=== PATIENT | female | born 1960 | race Two or more races ===

== ENCOUNTER → 2024-10-03 | Outpatient (CLI) | payer OTHER, MEDICAID, SELFPAY ==
[2024-10-03 08:05] LABS: Collection Type, Urine Clean Catch
[2024-10-03 08:28] LABS: Basophils # (Auto) 0.1 Thou/mm3 (0.0-0.2); Basophils % (Auto) 1 % (0-2.5); Eosinophils # (Auto) 0.1 Thou/mm3 (0.0-0.5); Eosinophils % (Auto) 1 % (0-10); Hematocrit 42.2 % (36.0-46.0); Hemoglobin 14.2 g/dL (12.0-16.0); Immature Granulocytes % (Auto) 0 % (0-0); Lymphocytes # (Auto) 2.6 Thou/mm3 (1.0-4.8); Lymphocytes % (Auto) 49 % (10-50); Mean Corpuscular HGB Conc 33.6 g/dl (31.0-37.0); Mean Corpuscular Hemoglobin 31.4 pg (25.0-35.0); Mean Corpuscular Volume 93 fL (80-100); Monocytes # (Auto) 0.4 Thou/mm3 (0.0-0.8); Monocytes % (Auto) 7 % (0-12); Neutrophils # (Auto) 2.1 Thou/mm3 (1.8-7.7); Neutrophils % (Auto) 41 % (37-80); Nucleated Red Blood Cell % 0 /100 WBC (0); Platelet Count 278 Thou/mm3 (140-440); RDW Standard Deviation 45.2 fL (36.4-46.3); Red Blood Count 4.52 Miln/mm3 (4.00-5.20); White Blood Count 5.2 Thou/mm3 (3.6-11.0)
[2024-10-03 08:49] LABS: Alanine Aminotransferase 18 U/L (10-49); Albumin, Serum 4.3 gm/dL (3.4-4.8); Albumin/Globulin Ratio 1.6 (1.2-2.2); Alkaline Phosphatase 100 U/L (46-116); Anion Gap 9 (7-16); Aspartate Amino Transferase 16 U/L (0-34); BUN/Creatinine Ratio 30 Ratio (12-20); Bilirubin,Total 0.9 mg/dL (0.3-1.2); Blood Urea Nitrogen 18 mg/dL (9-23); Calcium 9.1 mg/dL (8.3-10.6); Calcium (Corrected) 9.1 mg/dL (8.5-10.1); Carbon Dioxide 27.5 mMol/L (20.0-31.0); Cardiac Risk Estimate 4.3 RATIO (3.7-5.6); Chloride 103 mMol/L (98-107); Cholesterol 234 mg/dL (132-200); Creatinine (Component) 0.6 mg/dL (0.6-1.3); Globulin 2.7 gm/dL (2.3-3.5); Glucose 135 mg/dL (74-106); HDL Cholesterol 55 mg/dL (40-60); LDL Cholesterol,Calculated 151 mg/dL (0-130); Osmolality,Calculated 281 (275-295); Sodium 139 mMol/L (136-145); Thyroid Stimulating Hormone 3.75 uIU/mL (0.55-4.78); Triglycerides 141 mg/dL (30-150); Uric Acid 4.4 mg/dL (3.1-7.8); eGFR > 60 See Note
[2024-10-03 08:50] LABS: Vitamin B12 1727 pg/mL (211-911); Vitamin D 25 Hydroxy Total 40.2 ng/mL (7.3-40.2)
[2024-10-03 08:52] LABS: Creatinine MALB Rnd Ur 69 mg/dL (30-125); Microalbumin, Random Urine < 3 mg/L (0-300)
[2024-10-03 08:56] LABS: Bilirubin,Urine Negative (Negative); Blood,Urine Negative (Negative); Clarity,Urine Clear (Clear/Hazy); Color,Urine Lt-Yellow (Lt Yel-Yel); Glucose, Urine 4+ (Negative); Ketones,Urine Negative (Negative); Leukocyte Esterase,Urine Negative (Negative); Nitrite,Urine Negative (Negative); Protein,Urine Negative (Neg - Trace); RBC,Urine 4 /hpf (0-3); Specific Gravity,Urine 1.036 (1.001-1.035); Squamous Epithelial Cell,Urine < 1 /hpf (0-5); Urobilinogen,Urine Negative mg/dL (0.0-1.0); WBC,Urine 1 /hpf (0-5)
[2024-10-03 09:17] LABS: Glucose Estimated Average 140 mg/dL (80-131); Hemoglobin A1C 6.5 % Hgb (4.8-6.0)
== END | disposition home or self-care (01) ==
PROVIDERS: PCP Internal Medicine; Referring Provider Internal Medicine; Visit Provider Internal Medicine
DX: E11.9 Type 2 diabetes mellitus without complications (principal); I10 Essential (primary) hypertension; E78.5 Hyperlipidemia, unspecified
CPT/HCPCS: 36415; 80053; 80061; 81001; 82043; 82306; 82570; 82607; 83036; 84443; 84550; 85025

== ENCOUNTER 2024-11-22 06:35 | Day surgery (SDC) | payer OTHER, SELFPAY ==
[2024-11-18 10:42] VITALS: BMI 33.7
[2024-11-18 11:16] LABS: Basophils # (Auto) 0.1 Thou/mm3 (0.0-0.2); Basophils % (Auto) 1 % (0-2.5); Eosinophils # (Auto) 0.1 Thou/mm3 (0.0-0.5); Eosinophils % (Auto) 1 % (0-10); Hematocrit 41.4 % (36.0-46.0); Hemoglobin 14.3 g/dL (12.0-16.0); Immature Granulocytes % (Auto) 0 % (0-0); Immature Granulocytes Auto 0.01 Thou/mm3 (0.00-0.00); Lymphocytes # (Auto) 2.2 Thou/mm3 (1.0-4.8); Lymphocytes % (Auto) 35 % (10-50); Mean Corpuscular HGB Conc 34.5 g/dl (31.0-37.0); Mean Corpuscular Hemoglobin 31.2 pg (25.0-35.0); Mean Corpuscular Volume 90 fL (80-100); Monocytes # (Auto) 0.4 Thou/mm3 (0.0-0.8); Monocytes % (Auto) 6 % (0-12); Neutrophils # (Auto) 3.6 Thou/mm3 (1.8-7.7); Neutrophils % (Auto) 57 % (37-80); Nucleated Red Blood Cell % 0 /100 WBC (0); Platelet Count 255 Thou/mm3 (140-440); RDW Standard Deviation 42.8 fL (36.4-46.3); Red Blood Count 4.59 Miln/mm3 (4.00-5.20); White Blood Count 6.2 Thou/mm3 (3.6-11.0)
[2024-11-18 11:27] LABS: Partial Thromboplastin Time 26.1 Seconds (22.0-36.0); Prothrombin Time 10.8 Seconds (9.0-12.2)
[2024-11-18 11:38] LABS: Alanine Aminotransferase 23 U/L (10-49); Albumin, Serum 4.6 gm/dL (3.4-4.8); Albumin/Globulin Ratio 1.6 (1.2-2.2); Alkaline Phosphatase 122 U/L (46-116); Anion Gap 10 (7-16); Aspartate Amino Transferase 28 U/L (0-34); BUN/Creatinine Ratio 19 Ratio (12-20); Bilirubin,Total 0.8 mg/dL (0.3-1.2); Blood Urea Nitrogen 13 mg/dL (9-23); Calcium 9.1 mg/dL (8.3-10.6); Calcium (Corrected) 9.1 mg/dL (8.5-10.1); Chloride 103 mMol/L (98-107); Creatinine (Component) 0.7 mg/dL (0.6-1.3); Estimated Creatinine Clearance 87.8 mL/min (>60); Globulin 2.8 gm/dL (2.3-3.5); Glucose 200 mg/dL (74-106); Osmolality,Calculated 283 (275-295); Sodium 139 mMol/L (136-145); Total Protein 7.4 gm/dL (5.7-8.2); eGFR > 60 See Note
--- NOTE | 2024-11-18 14:24 | ESHP_ITS ---
RE: AYAKA DUMONT : 1960 DATE OF ADMISSION: 11/22/2024 HISTORY OF PRESENT ILLNESS: This is a 64-year-old 3, para 3, postmenopausal with endometrial thickening who presents for hysteroscopy with endometrial biopsy to rule out hyperplasia and carcinoma. ALLERGIES: PENICILLIN. MEDICATIONS: 1. Atorvastatin 10 mg one p.o. daily. 2. Paroxetine 10 mg one p.o. daily. 3. Januvia 25 mg one p.o. daily. PAST MEDICAL HISTORY: Type 2 diabetes mellitus, depression, hyperlipidemia. FAMILY HISTORY: Sister has breast cancer and hypertension. OBSTETRIC HISTORY: Two previous full-term normal vaginal deliveries and one delivery. PAST SURGICAL HISTORY: delivery and cholecystectomy. REVIEW OF SYSTEMS: She denies any chest pain, palpitations, cough, fever, shortness of breath, or lower extremity pain. PHYSICAL EXAMINATION: VITAL SIGNS: Blood pressure is 135/71 mmHg, heart rate 76, respirations 18, temperature 98.2, and weight 196 pounds. HEENT: Oropharynx and sclerae are clear. LUNGS: Clear to auscultation bilaterally. HEART: Regular rate and rhythm. ABDOMEN: Old Pfannenstiel scar noted. EXTREMITIES: Nontender. SKIN: No grosses or lesions. NEUROLOGIC: No focal deficit. ASSESSMENT: 1. Postmenopausal bleeding. 2. Endometrial thickening. PLAN: Hysteroscopy, fracture dilatation and curettage, and endometrial biopsies. Informed consent was obtained. The patient was made aware of the risks, complications, alternatives, benefits of the proposed procedure, and she agrees. DT: 14:00:47 TT: 14:22:00 Ref: [id number] - TID: [id number]
[2024-11-22] VITALS (8 sets, daily range): BP systolic 114–135; BP diastolic 64–77; PULSE 66–79; RESP 12–14; TEMP 36.3–36.5; O2SAT 93–98; BMI 33.6
--- NOTE | 2024-11-22 07:20 | CHAP ---
Visited with patient and gave encouragement and prayer.
[2024-11-22] MEDS: RINGERS LACTATED 1000 ML 1,000 ML 30 ML IV (07:26)
--- NOTE | 2024-11-22 09:23 | SUR.PHASEI ---
0923: Pt. wakes to name then drifts bakc to sleep, vitals stable, breathing unlabored, no complaint of pain or nausea, peripad in place CDI, no active bleed noted, report received from Makenzie VALDEZ and MD Monet.
--- NOTE | 2024-11-22 10:23 | SUR.PHASEII ---
1023: Pt. AAOx4, vitals stable, breathing unlabored, no complaint of pain or nausea, peripad in place CDI, no active bleed noted, pt. tolerated sips of water well, pt. ambulated to wheelchair with steady gait and no assist, no complications. Gave discharge instructions to the pt. and her ride using bending roll hand, both verbalized understanding and had no further questions. Pt. left with all personal belongings.
--- NOTE | 2024-11-22 10:44 | ESOP_ITS ---
RE: AYAKA DUMONT : 1960 DATE OF OPERATION: 11/22/2024 PREOPERATIVE DIAGNOSES: 1. Postmenopausal bleeding. 2. Endometrial thickening. POSTOPERATIVE DIAGNOSES: 1. Postmenopausal bleeding. 2. Endometrial thickening. 3. Endometrial polyps. PROCEDURE PERFORMED: A hysteroscopy, MyoSure removal of endometrial polyps, and fractional dilatation and curettage. SURGEON: Sunny Vieira DO [employer] DEVELOPER: None. ANESTHESIA: General. ANESTHESIOLOGIST: Dr. Monet. ESTIMATED BLOOD LOSS: 5 mL. COMPLICATIONS: None. COUNTS: Correct. PATHOLOGY: 1. Endometrial polyps. 2. Endocervical curettings. 3. Endometrial curettings. FINDINGS: Multiple endometrial polyps, no endocervical lesions. 130 mL of normal saline was absorbed hysteroscopically. DESCRIPTION OF PROCEDURE: After appropriate informed consent was obtained and the patient was made aware of the risks, complications, alternatives, benefits of the proposed procedure, she was taken to the operating room where she underwent induction of general anesthesia. She was placed in the dorsal lithotomy position. She was prepped and draped in the usual sterile fashion. A timeout was performed. A speculum was placed in the vagina. The patient underwent exam under anesthesia. She had a retroverted uterus sounded to 7 cm. The posterior cervix was grasped with the tenaculum. The cervix was dilated to accommodate the 5.5 mm Omni hysteroscope. The hysteroscope was then utilized to visualize the endocervix and uterine cavity. Using the MyoSure reach, a polypectomy was performed. Due to the large multiple lobed-appearing polyp, it was difficult to determine the actual base. There seemed to be polyps on the anterior as well as posterior aspect of the uterus. All the polyps were removed using the MyoSure reach. The endocervix was then curetted with the Kevorkian curette. Specimen was sent to pathology. The uterine cavity was curetted and minimal tissue was obtained. There was no bleeding at the end of the procedure. All instruments were removed from the vagina. She was referred from general anesthesia in the supine position and transferred to the recovery room in stable condition. She tolerated the procedure well. Counts were correct. I discussed with the patient's family the nature of her condition, the intraoperative findings, expectation for recovery. All questions were answered. DT: 09:34:21 TT: 10:43:00 Ref: [id number] - TID: [id number] MTDD
== END 2024-11-22 10:23 | disposition home or self-care (01) ==
PROVIDERS: PCP Internal Medicine; Referring Provider Specialist; Visit Provider Specialist
PROC: 0U5B8ZZ Destruction of Endometrium, Via Natural or Artificial Opening Endoscopic (ICD-10-PCS; CPT 58563; principal; 2024-11-22 08:30)
DX: N84.0 Polyp of corpus uteri (principal); F32.A Depression, unspecified; E78.5 Hyperlipidemia, unspecified; E11.9 Type 2 diabetes mellitus without complications; Z90.49 Acquired absence of other specified parts of digestive tract; Z82.49 Family history of ischemic heart disease and other diseases of the circulatory system; Z80.3 Family history of malignant neoplasm of breast
CPT/HCPCS: 58558; 36415; 80053; 85025; 85610; 85730; 86850; 86900; 86901; A4217; A4649; J1100; J2250; J2405; J2704; J3010; J7120

== ENCOUNTER → 2025-02-03 | Outpatient (CLI) | payer MEDICARE, SELFPAY ==
[2025-02-03 10:07] LABS: Collection Type, Urine Clean Catch; Squamous Epithelial Cell,Urine 0 /hpf (0-5)
[2025-02-03 10:38] LABS: Bilirubin,Urine Negative (Negative); Blood,Urine Negative (Negative); Clarity,Urine Clear (Clear/Hazy); Color,Urine Colorless (Lt Yel-Yel); Glucose, Urine 4+ (Negative); Ketones,Urine Negative (Negative); Leukocyte Esterase,Urine Negative (Negative); Nitrite,Urine Negative (Negative); Protein,Urine Negative (Neg - Trace); RBC,Urine < 1 /hpf (0-3); Specific Gravity,Urine 1.012 (1.001-1.035); Urobilinogen,Urine Negative mg/dL (0.0-1.0); WBC,Urine 1 /hpf (0-5)
[2025-02-03 10:44] LABS: Glucose Estimated Average 151 mg/dL (80-131); Hemoglobin A1C 6.9 % Hgb (4.8-6.0)
[2025-02-03 10:53] LABS: Alanine Aminotransferase 28 U/L (10-49); Albumin, Serum 4.3 gm/dL (3.4-4.8); Albumin/Globulin Ratio 1.7 (1.2-2.2); Alkaline Phosphatase 113 U/L (46-116); Anion Gap 11 (7-16); Aspartate Amino Transferase 31 U/L (0-34); BUN/Creatinine Ratio 13 Ratio (12-20); Bilirubin,Total 0.3 mg/dL (0.3-1.2); Blood Urea Nitrogen 9 mg/dL (9-23); Calcium 9.2 mg/dL (8.3-10.6); Calcium (Corrected) 9.2 mg/dL (8.5-10.1); Carbon Dioxide 26.6 mMol/L (20.0-31.0); Cardiac Risk Estimate 4.9 RATIO (3.7-5.6); Chloride 102 mMol/L (98-107); Cholesterol 206 mg/dL (132-200); Creatinine (Component) 0.7 mg/dL (0.6-1.3); Globulin 2.6 gm/dL (2.3-3.5); Glucose 156 mg/dL (74-106); HDL Cholesterol 42 mg/dL (40-60); LDL Cholesterol,Calculated 106 mg/dL (0-130); Osmolality,Calculated 281 (275-295); Sodium 140 mMol/L (136-145); Thyroid Stimulating Hormone 1.91 uIU/mL (0.55-4.78); Total Protein 6.9 gm/dL (5.7-8.2); Triglycerides 288 mg/dL (30-150); eGFR > 60 See Note
[2025-02-03 10:56] LABS: Creatinine MALB Rnd Ur 26 mg/dL (30-125); Microalbumin, Random Urine < 3 mg/L (0-300)
--- NOTE | 2025-02-03 11:00 | XR_ITS ---
Examination: Retroperitoneal ultrasound, complete Technique: Multiple high resolution grayscale images of the retroperitoneum obtained, including kidneys and bladder. 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
== END | disposition home or self-care (01) ==
LOC: CDIM 09:23
PROVIDERS: PCP Internal Medicine; Referring Provider Urology; Visit Provider Urology
DX: N20.0 Calculus of kidney (principal); N13.30 Unspecified hydronephrosis; E11.9 Type 2 diabetes mellitus without complications; I10 Essential (primary) hypertension; E78.5 Hyperlipidemia, unspecified
CPT/HCPCS: 36415; 76770; 80053; 80061; 81001; 82043; 82570; 83036; 84443

== ENCOUNTER → 2025-02-10 | Outpatient (CLI) | payer MEDICARE, SELFPAY ==
[2025-02-10 10:20] LABS: Collection Type, Urine Clean Catch
[2025-02-10 10:45] LABS: Bilirubin,Urine Negative (Negative); Blood,Urine Negative (Negative); Clarity,Urine Clear (Clear/Hazy); Color,Urine Yellow (Lt Yel-Yel); Glucose, Urine 4+ (Negative); Ketones,Urine Negative (Negative); Leukocyte Esterase,Urine Negative (Negative); Nitrite,Urine Negative (Negative); Protein,Urine Negative (Neg - Trace); RBC,Urine 2 /hpf (0-3); Specific Gravity,Urine 1.027 (1.001-1.035); Squamous Epithelial Cell,Urine 1 /hpf (0-5); Urobilinogen,Urine Negative mg/dL (0.0-1.0); WBC,Urine 2 /hpf (0-5)
[2025-02-10 10:57] LABS: Albumin, Serum 4.3 gm/dL (3.4-4.8); Anion Gap 7 (7-16); BUN/Creatinine Ratio 23 Ratio (12-20); Blood Urea Nitrogen 16 mg/dL (9-23); Carbon Dioxide 28.5 mMol/L (20.0-31.0); Chloride 106 mMol/L (98-107); Creatinine (Component) 0.7 mg/dL (0.6-1.3); Glucose 141 mg/dL (74-106); Osmolality,Calculated 284 (275-295); Potassium 4.2 mMol/L (3.4-5.1); Sodium 141 mMol/L (136-145); Uric Acid 4.7 mg/dL (3.1-7.8); eGFR > 60 See Note
[2025-02-10 10:59] LABS: Vitamin D 25 Hydroxy Total 39.4 ng/mL (7.3-40.2)
== END | disposition home or self-care (01) ==
LOC: COPL 09:41
PROVIDERS: PCP Internal Medicine; Referring Provider Internal Medicine; Visit Provider Internal Medicine
DX: N20.0 Calculus of kidney (principal)
CPT/HCPCS: 36415; 80069; 81001; 82306; 83970; 84550

== ENCOUNTER → 2025-02-20 | Outpatient (CLI) | payer MEDICARE, SELFPAY ==
[2025-02-20 07:57] LABS: Misc Send Out* See Sep Rpt
== END | disposition home or self-care (01) ==
LOC: SLDO 07:51
PROVIDERS: PCP Internal Medicine; Referring Provider Internal Medicine; Visit Provider Internal Medicine
DX: N20.0 Calculus of kidney (principal)

== ENCOUNTER → 2025-02-27 | Outpatient (CLI) | payer MEDICARE, SELFPAY ==
--- NOTE | 2025-02-27 09:00 | XR_ITS ---
Examination: Screening digital mammography, bilateral Computer aided detection 3-D breast Tomosynthesis, bilateral Date and time of exam: February 27, 2025 Compared to mammograms dating to September 28, 2017 Indication: Screening Technique: Nonmagnified MLO, CC views of the breasts to been obtained, reconstructed from 3-D Tomosynthesis images. R2 computer aided detection program utilized for evaluation of suspicious masses and/or abnormal calcifications. 3-D Tomosynthesis images obtained. Findings: Scattered areas of fibroglandular density. Benign calcifications. No interval suspicious masses Impression: BI-RADS category II: Benign Findings. Recommend 1 year follow-up mammogram.
== END | disposition home or self-care (01) ==
LOC: CDIM 08:42
PROVIDERS: PCP Internal Medicine; Referring Provider Specialist; Visit Provider Specialist
DX: Z12.31 Encounter for screening mammogram for malignant neoplasm of breast (principal); R92.323 Mammographic fibroglandular density, bilateral breasts; R92.1 Mammographic calcification found on diagnostic imaging of breast
CPT/HCPCS: 77063; 77067

== ENCOUNTER → 2025-03-31 | Outpatient (BNVA) | payer MEDICARE, MEDICAID, SELFPAY | END | disposition home or self-care (01) | PROVIDERS: PCP Internal Medicine; Referring Provider Internal Medicine; Visit Provider Urology | DX: G89.4 Chronic pain syndrome (principal); R10.2 Pelvic and perineal pain; R30.0 Dysuria; E11.9 Type 2 diabetes mellitus without complications; E78.00 Pure hypercholesterolemia, unspecified; I10 Essential (primary) hypertension | CPT/HCPCS: 81003; 99212; G0463 ==

== ENCOUNTER → 2025-05-22 | Outpatient (BNVA) | payer MEDICARE, MEDICAID, SELFPAY | END | disposition home or self-care (01) | PROVIDERS: PCP Internal Medicine; Referring Provider Internal Medicine; Visit Provider Urology | DX: D41.4 Neoplasm of uncertain behavior of bladder (principal); N35.92 Unspecified urethral stricture, female; Z87.440 Personal history of urinary (tract) infections; D17.71 Benign lipomatous neoplasm of kidney; I10 Essential (primary) hypertension; E78.00 Pure hypercholesterolemia, unspecified; E11.9 Type 2 diabetes mellitus without complications | CPT/HCPCS: 52214; 81003; 96372; A4217; A4649; C1894; J3260; A9270 ==

== ENCOUNTER → 2025-06-07 | Outpatient (CLI) | payer MEDICARE, MEDICAID, SELFPAY ==
[2025-06-07 08:57] LABS: Glucose Estimated Average 200 mg/dL (80-131); Hemoglobin A1C 8.6 % Hgb (4.8-6.0)
[2025-06-07 09:11] LABS: Alanine Aminotransferase 22 U/L (10-49); Albumin, Serum 4.0 gm/dL (3.4-4.8); Albumin/Globulin Ratio 1.6 (1.2-2.2); Alkaline Phosphatase 78 U/L (46-116); Anion Gap 11 (7-16); Aspartate Amino Transferase 31 U/L (0-34); BUN/Creatinine Ratio 14 Ratio (12-20); Bilirubin,Total 0.8 mg/dL (0.3-1.2); Blood Urea Nitrogen 10 mg/dL (9-23); Calcium 8.9 mg/dL (8.3-10.6); Calcium (Corrected) 8.9 mg/dL (8.5-10.1); Carbon Dioxide 26.5 mMol/L (20.0-31.0); Cardiac Risk Estimate 4.8 RATIO (3.7-5.6); Chloride 104 mMol/L (98-107); Cholesterol 174 mg/dL (132-200); Creatinine (Component) 0.7 mg/dL (0.6-1.3); Globulin 2.5 gm/dL (2.3-3.5); Glucose 162 mg/dL (74-106); HDL Cholesterol 36 mg/dL (40-60); LDL Cholesterol,Calculated 117 mg/dL (0-130); Osmolality,Calculated 284 (275-295); Potassium 4.0 mMol/L (3.4-5.1); Sodium 141 mMol/L (136-145); Total Protein 6.5 gm/dL (5.7-8.2); Triglycerides 103 mg/dL (30-150); eGFR > 60 See Note
== END | disposition home or self-care (01) ==
LOC: COPL 07:12
PROVIDERS: PCP Internal Medicine; Referring Provider Internal Medicine; Visit Provider Internal Medicine
DX: I10 Essential (primary) hypertension (principal); E78.5 Hyperlipidemia, unspecified; E11.9 Type 2 diabetes mellitus without complications
CPT/HCPCS: 36415; 80053; 80061; 83036

== ENCOUNTER → 2025-09-27 | Outpatient (CLI) | payer MEDICARE, MEDICAID, SELFPAY ==
[2025-09-27 08:04] LABS: Collection Type, Urine Clean Catch
[2025-09-27 08:44] LABS: Glucose Estimated Average 148 mg/dL (80-131); Hemoglobin A1C 6.8 % Hgb (4.8-6.0)
[2025-09-27 08:47] LABS: Creatinine MALB Rnd Ur 130 mg/dL (30-125); Microalbumin Creat Ratio 113 mg/gCrea (<30); Microalbumin, Random Urine 147 mg/L (0-300)
[2025-09-27 08:51] LABS: Bacteria,Urine 1+; Bilirubin,Urine Negative (Negative); Blood,Urine 1+ (Negative); Color,Urine Yellow (Lt Yel-Yel); Glucose, Urine Negative (Negative); Hyaline Casts,Urine < 1 /hpf (0-1); Ketones,Urine Negative (Negative); Leukocyte Esterase,Urine Positive (Negative); Nitrite,Urine Negative (Negative); PH,Urine 6.0 (5.0-7.0); Protein,Urine 1+ (Neg - Trace); RBC,Urine 20 /hpf (0-3); Specific Gravity,Urine 1.022 (1.001-1.035); Squamous Epithelial Cell,Urine 1 /hpf (0-5); Urobilinogen,Urine Negative mg/dL (0.0-1.0); WBC,Urine 1351 /hpf (0-5)
[2025-09-27 08:56] LABS: Alanine Aminotransferase 12 U/L (10-49); Albumin, Serum 4.2 gm/dL (3.4-4.8); Albumin/Globulin Ratio 1.6 (1.2-2.2); Alkaline Phosphatase 75 U/L (46-116); Anion Gap 9 (7-16); Aspartate Amino Transferase 19 U/L (0-34); BUN/Creatinine Ratio 20 Ratio (12-20); Bilirubin,Total 0.6 mg/dL (0.3-1.2); Blood Urea Nitrogen 12 mg/dL (9-23); Calcium 8.8 mg/dL (8.3-10.6); Calcium (Corrected) 8.8 mg/dL (8.5-10.1); Carbon Dioxide 27.7 mMol/L (20.0-31.0); Cardiac Risk Estimate 3.1 RATIO (3.7-5.6); Chloride 106 mMol/L (98-107); Cholesterol 159 mg/dL (132-200); Creatinine (Component) 0.6 mg/dL (0.6-1.3); Globulin 2.6 gm/dL (2.3-3.5); Glucose 132 mg/dL (74-106); HDL Cholesterol 51 mg/dL (40-60); LDL Cholesterol,Calculated 92 mg/dL (0-130); Osmolality,Calculated 286 (275-295); Potassium 4.0 mMol/L (3.4-5.1); Sodium 143 mMol/L (136-145); Total Protein 6.8 gm/dL (5.7-8.2); Triglycerides 82 mg/dL (30-150); eGFR > 60 See Note
[2025-09-27 09:24] LABS: Clarity,Urine Hazy (Clear/Hazy); Culture Indicated,Urine Yes
== END | disposition home or self-care (01) ==
LOC: COPL 06:59
PROVIDERS: PCP Internal Medicine; Referring Provider Internal Medicine; Visit Provider Internal Medicine
DX: I10 Essential (primary) hypertension (principal); E78.5 Hyperlipidemia, unspecified; E11.9 Type 2 diabetes mellitus without complications; N39.0 Urinary tract infection, site not specified
CPT/HCPCS: 36415; 80053; 80061; 81001; 82043; 82570; 83036; 87077; 87086; 87186